=== PATIENT | female | born 1970 | race Caucasian/White ===

== ENCOUNTER 2020-10-27 17:29 | Emergency (ER) | payer SELFPAY ==
[2020-10-27] MEDS: Albuterol/Ipratropium 3.0-0.5 MG/3 ML Neb Soln NEB ONE (21:25)
[2020-10-27] MEDS: LORazepam 2 MG/ML SDV IM ONE (21:26)
--- NOTE | 2020-10-27 21:38 | EDM.PDOCBH ---
ED HPI GENERAL MEDICAL PROBLEM - General Chief Complaint: Drug or Alcohol Abuse Stated Complaint: WITHDRAWLS Time Seen by Provider: 10/27/20 20:46 Source of Information: Reports: Patient History Limitations: Reports: No Limitations - History of Present Illness INITIAL COMMENTS - FREE TEXT/NARRATIVE: HISTORY AND PHYSICAL: History of present illness: Patient is a 50-year-old female who presents to the emergency room with complaints of generally feeling unwell. Patient states she has been a methamphetamine user over the past 10 years. Smokes meth daily or every other day. She states she has been attempting to stop smoking methamphetamine, last use was yesterday afternoon. She is seeking "detox treatment to help me come off of meth". Patient denies any fever, chills, headache, change in vision, syncope or near syncope. Denies any chest pain, back pain, shortness of breath or cough. Denies any abdominal pain, nausea, vomiting, diarrhea, constipation or dysuria. Has not noted any blood in urine or stool. Patient has been eating and drinking appropriately. Denies any other drug abuse or any intravenous drug use. Denies any alcohol abuse. Review of systems: As per history of present illness and below otherwise all systems reviewed and negative. Past medical history: As per history of present illness and as reviewed below otherwise noncontributory. Surgical history: As per history of present illness and as reviewed below otherwise noncontributory. Social history: See social history for further information Family history: As per history of present illness and as reviewed below otherwise noncontributory. Physical exam: General: Well developed and well nourished. Alert and orientated x 3. Nontoxic in appearance and in no acute distress. Vital signs are stable and have been reviewed by me. Nursing notes were reviewed. HEENT: Atraumatic, normocephalic, pupils equal and reactive bilaterally, negative for conjunctival pallor or scleral icterus, mucous membranes moist, TMs normal bilaterally, throat clear, neck supple, nontender, trachea midline. No drooling or trismus noted. No meningeal signs. No hot potato voice noted. Lungs: Clear to auscultation bilaterally. No wheezes, rales, or rhonchi. Chest nontender. Normal work of breathing, no accessory muscles used. Heart: S1S2, regular rate and rhythm without overt murmur, gallops, or rubs. No JVD. No peripheral edema Abdomen: Soft, nondistended, nontender. Normoactive bowel sounds. Negative for masses or costovertebral tenderness. Skin: Intact, warm, dry. No lesions or rashes noted. Hematologic: No petechiae or purpra. Mucosa appropriate color and normal nail bed color and refill. Extremities: Atraumatic, moves all extremities per self without difficulty or deficits, negative for cords or calf pain. Neurovascular unremarkable. Neuro: Awake, alert, oriented. Cranial nerves II through XII unremarkable. Cerebellum unremarkable. Motor and sensory unremarkable throughout. Exam non focal. Psychiatric: Mood and affect are appropriate. Normal thought process. Answering questions appropriately. Please note that the patient was seen and evaluated during the 2019 SARS-CoV-2 novel coronavirus pandemic period. Community viral transmission is ongoing at time of this encounter and the emergency department is operating under pandemic response procedures. Medical Decision Making: Patient is a 50-year-old female who presents to the emergency room requesting "detox" for methamphetamine use. States she has smoked methamphetamine routinely over the past 10 years and would like to come "off of it". Patient does appear anxious and tearful. We discussed possible treatment options including calling for outpatient/inpatient programs in the community versus close follow-up with [facility]. Patient states she does not want to be transferred anywhere. We will do some basic lab work and help with her anxiety. Lab work is unremarkable. Chest x-ray shows no acute findings. I have talked with the patient about today's findings, in addition to providing specific details for plan of care. Reassessment at the time of disposition demonstrates that the patient is in no acute distress. The patient is stable for discharge, counseling was provided and we discussed in great detail signs and symptoms that would prompt them to return to the Emergency Department. Medication, follow up and supportive care measures were reviewed and discussed. Voices understanding and is agreeable to plan of care. Denies any further questions or concerns at this time. Diagnostics: CBC, CMP, chest x-ray Therapeutics: Ativan IM Prescription: None Impression: Methamphetamine Abuse Plan: 1. You were evaluated today on an emergent basis. Your vital signs, lab work and evaluation are within normal limits. We do not have any inpatient drug treatment programs at our facility. I have given you a list of resources to follow up with. [facility] takes walk-ins Sunday-Sunday 8am - 5pm. They have CRU unit that does help patients with addiction. 2. You can alternate Tylenol and ibuprofen as needed for pain and fever management. 3. We encourage you to follow up with your primary care provider in the next few days for re-evaluation and further care/management. 4. If your symptoms should worsen, new symptoms develop or any of the signs and symptoms we discussed should arise please return to the emergency room or call 911 (if needed). Definitive disposition and diagnosis as appropriate pending reevaluation and review of above. - Related Data Allergies Allergy/AdvReac Type Severity Reaction Status Date / Time codeine Allergy Vomiting Verified 10/27/20 20:59 Home Meds: Home Meds Albuterol Sulfate [Albuterol Sulfate HFA] 8.5 gm INH ASDIRECTED 10/27/20 [History] ED ROS GENERAL - Review of Systems Review Of Systems: Comprehensive ROS is negative, except as noted in HPI. ED EXAM, BEHAVIORAL HEALTH - Physical Exam Exam: See Below (See dictation) COURSE, BEHAVIORAL HEALTH COMP - Course Vital Signs: Last Vital Signs Temp 97.0 F 10/27/20 21:30 Pulse 108 H 10/27/20 22:10 Resp 18 10/27/20 22:10 BP 132/82 10/27/20 22:10 Pulse Ox 99 10/27/20 22:10 Orders, Labs, Meds: Laboratory Tests 10/27/20 10/27/20 Range/Units 21:00 21:00 WBC 7.72 (4.0-11.0) K/uL RBC 4.33 (4.30-5.90) M/uL Hgb 13.1 (12.0-16.0) g/dL Hct 38.8 (36.0-46.0) % MCV 89.6 (80.0-98.0) fL MCH 30.3 (27.0-32.0) pg MCHC 33.8 (31.0-37.0) g/dL RDW Std Deviation 42.7 (28.0-62.0) fl RDW Coeff of Que 13 (11.0-15.0) % Plt Count 313 (150-400) K/uL MPV 10.10 (7.40-12.00) fL Neut % (Auto) 62.5 (48.0-80.0) % Lymph % (Auto) 27.2 (16.0-40.0) % [place] % (Auto) 7.9 (0.0-15.0) % Eos % (Auto) 1.8 (0.0-7.0) % Baso % (Auto) 0.6 (0.0-1.5) % Neut # (Auto) 4.8 (1.4-5.7) K/uL Lymph # (Auto) 2.1 (0.6-2.4) K/uL [place] # (Auto) 0.6 (0.0-0.8) K/uL Eos # (Auto) 0.1 (0.0-0.7) K/uL Baso # (Auto) 0.1 (0.0-0.1) K/uL Nucleated RBC % 0.0 /100WBC Nucleated RBCs # 0 K/uL Sodium 137 (136-145) mmol/L Potassium 4.2 (3.5-5.1) mmol/L Chloride 104 (98-107) mmol/L Carbon Dioxide 25.7 (21.0-32.0) mmol/L BUN 18 (7.0-18.0) mg/dL Creatinine 0.9 (0.6-1.0) mg/dL Est Cr Clr Drug Dosing TNP Estimated GFR (MDRD) > 60.0 ml/min Glucose 108 H (74-106) mg/dL Calcium 8.3 L (8.5-10.1) mg/dL Total Bilirubin 0.1 L (0.2-1.0) mg/dL AST 18 (15-37) IU/L ALT 48 (14-63) IU/L Alkaline Phosphatase 87 (46-116) U/L Total Protein 7.2 (6.4-8.2) g/dL Albumin 3.1 L (3.4-5.0) g/dL Globulin 4.1 H (2.6-4.0) g/dL Albumin/Globulin Ratio 0.8 L (0.9-1.6) Medications Discontinued Medications Generic Name Dose Route Start Last Admin Trade Name Freq PRN Reason Stop Dose Admin Albuterol/Ipratropium 3 ml 10/27/20 21:02 10/27/20 21:25 Albuterol/Ipratropium 3.0-0.5 Mg/3 Ml Neb Soln NEB 10/27/20 21:03 3 ml ONETIME ONE Administration Lorazepam 2 mg 10/27/20 21:02 10/27/20 21:26 Lorazepam 2 Mg/Ml Sdv IM 10/27/20 21:03 2 mg ONETIME ONE Administration Departure - Departure Time of Disposition: 21:57 Disposition: Home, Self-Care 01 Clinical Impression: Methamphetamine abuse - Discharge Information Instructions: Methamphetamines Use Disorder Referrals: PCP,None [Primary Care Provider] - Forms: ED Department Discharge Additional Instructions: The following information is given to patients seen in the emergency department who are being discharged to home. This information is to outline your options for follow-up care. We provide all patients seen in our emergency department with a follow-up referral. The need for follow-up, as well as the timing and circumstances, are variable depending upon the specifics of your emergency department visit. If you don't have a primary care physician on staff, we will provide you with a referral. We always advise you to contact your personal physician following an emergency department visit to inform them of the circumstance of the visit and for follow-up with them and/or the need for any referrals to a consulting specialist. The emergency department will also refer you to a specialist when appropriate. This referral assures that you have the opportunity for follow-up care with a specialist. All of these measure are taken in an effort to provide you with optimal care, which includes your follow-up. Under all circumstances we always encourage you to contact your private physician who remains a resource for coordinating your care. When calling for follow-up care, please make the office aware that this follow-up is from your recent emergency room visit. If for any reason you are refused follow-up, please contact the [facility] Emergency Department at and asked to speak to the emergency department charge nurse. [facility] [address] [place] [id number] [facility] [address] [place] [id number] Thank you for choosing the [facility] emergency department in [place] for your medical needs today. It was a pleasure caring for you. Today you were seen in the emergency department for addiction treatment Plan: 1. You were evaluated today on an emergent basis. Your vital signs, lab work and evaluation are within normal limits. We do not have any inpatient drug treatment programs at our facility. I have given you a list of resources to follow up with. [facility] takes walk-ins Sunday-Sunday 8am - 5pm. They have CRU unit that does help patients with addiction. 2. You can alternate Tylenol and ibuprofen as needed for pain and fever management. 3. We encourage you to follow up with your primary care provider in the next few days for re-evaluation and further care/management. 4. If your symptoms should worsen, new symptoms develop or any of the signs and symptoms we discussed should arise please return to the emergency room or call 911 (if needed).
[2020-10-27 21:55] LABS: BLOOD UREA NITROGEN,BUN 18 mg/dL (7.0-18.0); CARBON DIOXIDE,CO2 25.7 mmol/L (21.0-32.0); CHLORIDE,CL 104 mmol/L (98-107); GLUCOSE RANDOM 108 mg/dL (74-106); POTASSIUM,K 4.2 mmol/L (3.5-5.1); SODIUM,NA 137 mmol/L (136-145)
--- NOTE | 2020-10-27 21:55 | CR ---
INDICATION: Shortness of breath TECHNIQUE: Chest radiograph 1 view COMPARISON: None FINDINGS: The sensitivity and specificity of the exam are moderately limited by the patient`s body habitus. Mediastinum: The mediastinum is normal in appearance. The heart silhouette is normal in size and morphology. Lung: Both lungs are unremarkable in appearance. No sign of pleural effusion seen. No pneumothorax is identified. Bone and Soft tissue: Unremarkable for age. IMPRESSION: 1. No acute cardiopulmonary disease is seen. Dictated by: Isaak Barber MD @ 10/27/2020 21:54:40 (Electronically Signed)
== END 2020-10-27 22:10 | disposition home or self-care (01) ==
LOC: MW.ED 17:29
DX: F15.10 Other stimulant abuse, uncomplicated (principal); Z88.5 Allergy status to narcotic agent
CPT/HCPCS: 36415; 71045; 80053; 85025; 96372; 99284; J2060; J7620-GY

== ENCOUNTER 2020-10-30 00:09 | Emergency (ER) | payer MEDICAID, OTHER ==
[2020-10-30] MEDS ORDERED: Alum Hydrox/Mag Hydrox/Simeth 15 ML, Lidocaine 2% 5 ML PO ONE ×2 (01:54)
[2020-10-30] MEDS ORDERED: Pantoprazole 40 MG Tab.CR PO STA (01:54)
--- NOTE | 2020-10-30 02:21 | EDM.PDOC ---
ED HPI GENERAL MEDICAL PROBLEM - General Chief Complaint: Abdominal Pain Stated Complaint: HEARTBURN, VOMITTING Time Seen by Provider: 10/30/20 01:51 - History of Present Illness INITIAL COMMENTS - FREE TEXT/NARRATIVE: HISTORY AND PHYSICAL: History of present illness: This a 50-year-old female with no history of hypertension, diabetes, liver, lung, kidney problems who presents ER today secondary to GERD symptoms. Patient reports that she feels like she has heartburn. Patient reports that she tasted funny acid taste in her mouth. Patient reports that she is a recovering methamphetamine user and is currently staying at [facility]. Patient denies any recent fevers, shakes, chills, nausea, vomiting, diarrhea, dysuria, frequency or urgency, chest pain, shortness of breath. Patient reports no discomfort in her chest but does feel that burning sensation in her throat. Patient reports no exertional component. Patient denies any pain rating down her neck jaw or back. Patient has any diaphoresis or shortness of breath. Review of systems: As per history of present illness and below otherwise all systems reviewed and negative. Past medical history: As per history of present illness and as reviewed below otherwise noncontributory. Surgical history: As per history of present illness and as reviewed below otherwise noncontributory. Social history: No reported history of drug abuse. Family history: As per history of present illness and as reviewed below otherwise noncontributory. Physical exam: This patient was seen and evaluated during the 2019 SARS-CoV-2 novel coronavirus pandemic period. Community viral transmission is ongoing at time of this encounter and the emergency department is operating under pandemic response procedures. Constitutional: Patient is oriented to person, place, and time. Appears well- developed and well-nourished. No distress. HEENT: Moist mucous membranes Head: Normocephalic and atraumatic Eyes: Right eye exhibits no discharge. Left eye exhibits no discharge. No scleral icterus Neck: Normal range of motion. No tracheal deviation present. Cardiovascular: Normal rate and regular rhythm. Pulmonary: Effort normal, no respiratory distress. Abdominal: No distention Musculoskeletal: Normal range of motion Neurologic: Alert and oriented to person, place and time. Skin: [place], warm and dry. Psychiatric: Normal mood and affect. Behavior is normal. Judgment and thought content normal. Nursing note and vital signs have been reviewed Diagnostics: EKG: October 30, 2020, 1:58 AM As interpreted by ER physician: Kathya: Nonspecific ST-T wave abnormalities Normal axis No evidence of ST elevation [place] Normal sinus rhythm heart rate of 92 Therapeutics: GI cocktail, Protonix 40 mg p.o. Assessment and plan: 50-year-old female who presents ER today secondary to signs and symptoms consistent with heartburn. Patient's EKG was unremarkable. Patient reports complete resolution of her symptoms approximate 2 to 3 minutes after taking the GI cocktail. Patient be given a prescription for Prilosec to assist with her symptoms as well. Patient symptoms do not appear to be consistent with cardiac etiology of her pain given the resolution with GI cocktail and no other cardiac symptomatology. Reassessment at the time of disposition demonstrates that the patient is in no acute distress. The patient has remained stable throughout the entire ED visit and is without objective evidence for acute process requiring urgent intervention or hospitalization. The patient is stable for discharge, counseling is provided as documented above, discussed symptomatic treatment and specific conditions for return. I have spoken with the patient/caregiver and discussed todays findings, in addition to providing specific details for the plan of care. Questions are answered and there is agreement with the plan. Definitive disposition and diagnosis as appropriate pending reevaluation and review of above. Abdomen Pain Score (Numeric/FACES): 10 - Related Data Allergies Allergy/AdvReac Type Severity Reaction Status Date / Time codeine Allergy Vomiting Verified 10/30/20 01:53 Home Meds: Home Meds Albuterol Sulfate [Albuterol Sulfate HFA] 8.5 gm INH ASDIRECTED 10/27/20 [History] Omeprazole Magnesium [Prilosec Otc] 20 mg PO DAILY #20 tablet. 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 Musculoskeletal History: Reports: None Neurological History: Reports: None Psychiatric History: Reports: Addiction, Anxiety, Depression Endocrine/Metabolic History: Reports: None Insulin Pump Model and Vp Data: None Hematologic History: Reports: None Immunologic History: Reports: None Oncologic (Cancer) History: Reports: None Dermatologic History: Reports: None - Infectious Disease History Infectious Disease History: Reports: None - Past Surgical History Head Surgeries/Procedures: Reports: None Social & Family History - Caffeine Use Caffeine Use: Reports: Soda ED ROS GENERAL - Review of Systems Review Of Systems: See Below ED EXAM, GENERAL - Physical Exam Exam: See Below Course - Vital Signs Last Recorded V/S: Last Vital Signs Temp 97.2 F 10/30/20 01:45 Pulse 92 10/30/20 01:45 Resp 18 10/30/20 01:45 BP 132/88 10/30/20 01:45 Pulse Ox 97 10/30/20 01:45 - Orders/Labs/Meds Meds: Medications Discontinued Medications Generic Name Dose Route Start Last Admin Trade Name Leonarda PRN Reason Stop Dose Admin Al Hydroxide/Mg Hydroxide 15 0 ml 10/30/20 01:54 10/30/20 02:15 ml/ Lidocaine HCl 5 ml PO 10/30/20 01:55 20 each ONETIME ONE Administration Pantoprazole Sodium 40 mg 10/30/20 01:54 10/30/20 02:14 Pantoprazole 40 Mg Tab.Cr PO 10/30/20 01:55 40 mg DAILY STA Administration Departure - Departure Time of Disposition: 02:20 Disposition: Home, Self-Care 01 Condition: Good Clinical Impression: GERD (gastroesophageal reflux disease) - Discharge Information Instructions: Food Choices for Gastroesophageal Reflux Disease, Adult Referrals: PCP,None [Primary Care Provider] - Additional Instructions: Your seen and evaluated in ER today secondary to sinus symptoms consistent with GERD. You were given a prescription for Prilosec that would help his symptoms long-term. He can also get [id number] Maalox to take as needed if your symptoms should return. The following information is given to patients seen in the emergency department who are being discharged to home. This information is to outline your options for follow-up care. We provide all patients seen in our emergency department with a follow-up referral. The need for follow-up, as well as the timing and circumstances, are variable depending upon the specifics of your emergency department visit. If you don't have a primary care physician on staff, we will provide you with a referral. We always advise you to contact your personal physician following an emergency department visit to inform them of the circumstance of the visit and for follow-up with them and/or the need for any referrals to a consulting specialist. The emergency department will also refer you to a specialist when appropriate. This referral assures that you have the opportunity for follow-up care with a specialist. All of these measure are taken in an effort to provide you with optimal care, which includes your follow-up. Under all circumstances we always encourage you to contact your private physician who remains a resource for coordinating your care. When calling for follow-up care, please make the office aware that this follow-up is from your recent emergency room visit. If for any reason you are refused follow-up, please contact the [facility] Emergency Department at and asked to speak to the emergency department charge nurse. [facility] - [facility] [address] [place] [id number] [facility] [address] [place] [id number] Sepsis Event Note (ED) - Focused Exam Vital Signs: Vital Signs Temp Pulse Resp BP Pulse Ox 10/30/20 01:45 97.2 F 92 18 132/88 97
== END 2020-10-30 02:40 | disposition home or self-care (01) ==
LOC: MW.ED 00:09
DX: K21.9 Gastro-esophageal reflux disease without esophagitis (principal); J45.909 Unspecified asthma, uncomplicated; Z88.5 Allergy status to narcotic agent; Z79.899 Other long term (current) drug therapy
CPT/HCPCS: 93005; 99283; A9270

== ENCOUNTER 2020-10-31 09:05 | Emergency (ER) | payer OTHER, MEDICAID ==
--- NOTE | 2020-10-31 09:41 | EDM.PDOC ---
ED HPI GENERAL MEDICAL PROBLEM - General Chief Complaint: Back Pain or Injury Stated Complaint: LOWER BACK PAIN Time Seen by Provider: 10/31/20 09:37 Source of Information: Reports: Patient History Limitations: Reports: No Limitations - History of Present Illness INITIAL COMMENTS - FREE TEXT/NARRATIVE: 50-year-old female past medical history methamphetamine abuse presents for low back pain. Patient notes that she has been trying to quit methamphetamine use and has not used in about 1 week. She notes that she has chronic low back pain and that she would self medicate as the methamphetamine would help with her back pain. She notes that she never injected and would only smoke the meth. She notes that the pain started to come on last night. She does not recall any rece nt heavy lifting or trauma or falls. She is taken tramadol in the past which helps. She has had MRI imaging of the back in the past that showed a slipped disc at the L4-L5 level. She denies any urinary retention or incontinence. She denies saddle anesthesia symptoms. She denies any lower extremity muscle weakness. She does note that the pain radiates down her right buttocks and posterior leg. She is ambulatory without difficulty. bilateral lower back Pain Score (Numeric/FACES): 8 - Related Data Allergies Allergy/AdvReac Type Severity Reaction Status Date / Time codeine Allergy Vomiting Verified 10/31/20 09:36 Home Meds: Home Meds Albuterol Sulfate [Albuterol Sulfate HFA] 8.5 gm INH ASDIRECTED 10/27/20 [History] Omeprazole Magnesium [Prilosec Otc] 20 mg PO DAILY #20 tablet. 10/30/20 [Rx] traMADol [Ultram] 50 mg PO Q6H PRN #20 tab 10/31/20 [Rx] Past Medical History HEENT History: Reports: None Cardiovascular History: Reports: None Respiratory History: Reports: Asthma Gastrointestinal History: Reports: None Genitourinary History: Reports: None VIDEO OPERATOR History: Reports: None Musculoskeletal History: Reports: None Neurological History: Reports: None Psychiatric History: Reports: Addiction, Anxiety, Depression Endocrine/Metabolic History: Reports: None Insulin Pump Model and Shoe Laster: None Hematologic History: Reports: None Immunologic History: Reports: None Oncologic (Cancer) History: Reports: None Dermatologic History: Reports: None - Infectious Disease History Infectious Disease History: Reports: None - Past Surgical History Head Surgeries/Procedures: Reports: None Social & Family History - Family History Family Medical History: No Pertinent Family History - Tobacco Use Tobacco Use Status *Q: Current Every Day Tobacco User Years of Tobacco use: 30 Packs/Tins Daily: 0.5 - Caffeine Use Caffeine Use: Reports: None - Recreational Drug Use Recreational Drug Use: Yes Drug Use in Last 12 Months: Yes Recreational Drug Type: Reports: Methamphetamine ED ROS GENERAL - Review of Systems Review Of Systems: Comprehensive ROS is negative, except as noted in HPI. ED EXAM, GENERAL - Physical Exam Exam: See Below Exam Limited By: No Limitations General Appearance: Alert, WD/WN, No Apparent Distress Ears: Hearing Grossly Normal Throat/Mouth: Normal Voice, No Airway Compromise Head: Atraumatic, Normocephalic Neck: Normal Inspection Respiratory/Chest: No Respiratory Distress, Lungs Clear, Normal Breath Sounds, No Accessory Muscle Use Cardiovascular: Normal Peripheral Pulses, Regular Rate, Rhythm GI/Abdominal: Soft, Non-Tender Back Exam: Other (no midline TTP; no skin changes noted; +TTP of R lumbar paraspinal musculature) Extremities: Normal Inspection, Other (normal muscle strength b/l LE) Neurological: Alert, Oriented, Normal Cognition, Normal Gait, No Motor/Sensory Deficits Psychiatric: Normal Affect, Normal Mood Skin Exam: Warm, Dry, Intact, Normal Color Course - Vital Signs Last Recorded V/S: Last Vital Signs Temp 98.2 F 10/31/20 10:54 Pulse 88 10/31/20 10:54 Resp 18 10/31/20 10:54 BP 118/84 10/31/20 10:54 Pulse Ox 97 10/31/20 10:54 - Orders/Labs/Meds Labs: Laboratory Tests 10/31/20 10/31/20 Range/Units 10:30 10:30 Urine Color YELLOW Urine Appearance CLEAR Urine pH 7.0 (5.0-8.0) Ur Specific [place] 1.010 (1.001-1.035) Urine Protein NEGATIVE (NEGATIVE) mg/dL Urine Glucose (UA) NEGATIVE (NEGATIVE) mg/dL Urine Ketones NEGATIVE (NEGATIVE) mg/dL Urine Occult Blood NEGATIVE (NEGATIVE) Urine Nitrite NEGATIVE (NEGATIVE) Urine Bilirubin NEGATIVE (NEGATIVE) Urine Urobilinogen 0.2 (<2.0) EU/dL Ur Leukocyte Esterase NEGATIVE (NEGATIVE) Urine HCG, Qual NEGATIVE (NEGATIVE) Meds: Medications Discontinued Medications Generic Name Dose Route Start Last Admin Trade Name Freq PRN Reason Stop Dose Admin Cyclobenzaprine HCl 10 mg 10/31/20 09:49 10/31/20 10:29 Cyclobenzaprine 10 Mg Tab PO 10/31/20 09:50 10 mg ONETIME ONE Administration Dexamethasone 6 mg 10/31/20 09:49 10/31/20 10:29 Dexamethasone 10 Mg/Ml Sdv IM 10/31/20 09:50 6 mg STAT STA Administration Ketorolac Tromethamine 30 mg 10/31/20 09:49 10/31/20 10:28 Ketorolac 30 Mg/Ml Sdv IM 10/31/20 09:50 30 mg ONETIME ONE Administration - Re-Assessments/Exams Free Text/Narrative Re-Assessment/Exam: 10/31/20 09:58 My suspicion for epidural abscess or cauda equina is low considering the reassur ing history and benign physical exam. Will get CT imaging of the lumbar spine to ensure no gross abnormalities. Will give Toradol, Decadron, Flexeril and reassess. 10/31/20 11:37 CT imaging reveals multiple stable transverse process fractures of the lumbar spine. Will discharge patient with analgesia patient notes that she did fall and winter of last year and these fractures are known to her. Departure - Departure Time of Disposition: 11:47 Disposition: Home, Self-Care 01 Condition: Good Clinical Impression: Lumbar transverse process fracture Qualifiers: Encounter type: initial encounter Fracture type: closed Qualified Code(s): S32.009A - Unspecified fracture of unspecified lumbar vertebra, initial encounter for closed fracture - Discharge Information Prescriptions: traMADol [Ultram] 50 mg PO Q6H PRN #20 tab PRN Reason: Pain Instructions: Lumbar Spine Fracture Referrals: PCP,None [Primary Care Provider] - Forms: ED Department Discharge Additional Instructions: The following information is given to patients seen in the emergency department who are being discharged to home. This information is to outline your options for follow-up care. We provide all patients seen in our emergency department with a follow-up referral. The need for follow-up, as well as the timing and circumstances, are variable depending upon the specifics of your emergency department visit. If you don't have a primary care physician on staff, we will provide you with a referral. We always advise you to contact your personal physician following an emergency department visit to inform them of the circumstance of the visit and for follow-up with them and/or the need for any referrals to a consulting specialist. The emergency department will also refer you to a specialist when appropriate. This referral assures that you have the opportunity for follow-up care with a specialist. All of these measure are taken in an effort to provide you with optimal care, which includes your follow-up. Under all circumstances we always encourage you to contact your private physician who remains a resource for coordinating your care. When calling for follow-up care, please make the office aware that this follow-up is from your recent emergency room visit. If for any reason you are refused follow-up, please contact the [facility] Emergency Department at and asked to speak to the emergency department charge nurse. Please follow up with your primary care physician. If you do not have a primary care physician, see below: [facility] [address] [place] [id number] [facility] [address] [place] [id number] [facility] [address] [place] [id number] Sepsis Event Note (ED) - Evaluation Sepsis Screening Result: No Definite Risk - Focused Exam Vital Signs: Vital Signs Temp Pulse Resp BP Pulse Ox 10/31/20 10:54 98.2 F 88 18 118/84 97 10/31/20 09:31 97.4 F 96 18 128/39 L 98
[2020-10-31] MEDS ORDERED: Ketorolac 30 MG/ML SDV IM ONE (09:49)
[2020-10-31] MEDS ORDERED: Cyclobenzaprine 10 MG Tab PO ONE (09:49)
[2020-10-31] MEDS ORDERED: Dexamethasone 10 MG/ML SDV IM STA (09:49)
--- NOTE | 2020-10-31 11:19 | CT ---
INDICATION: Acute on chronic low back pain. TECHNIQUE: CT of the lumbar spine without contrast. Coronal and sagittal reformats are included. COMPARISON: None. FINDINGS: Five lumbar type vertebral bodies, with the last fully formed disc space referred to as L5-S1. They are mildly displaced acute fractures involving the left L1 through L4 transverse processes. No unstable fractures. At L5-S1, advanced disc degeneration with disc vacuum phenomenon and endplate remodeling. There is a moderate disc bulge with overlying osteophytic ridging. When combined with facet arthrosis there is [id number] right and moderate left neural foraminal stenosis with potential impingement of the exiting left L5 nerve root. Bilateral SI joint arthrosis no significant soft tissue abnormalities. IMPRESSION: 1. Mildly displaced acute L1 through L4 transverse process fractures. No unstable fractures. 2. Spondylosis at L5-S1 as detailed above. Please note that all CT scans at this facility use dose modulation, iterative reconstruction, and/or weight-based dosing when appropriate to reduce radiation dose to as low as reasonably achievable. Dictated by Buck Comer MD @ 10/31/2020 11:17:25 AM (Electronically Signed)
== END 2020-10-31 11:56 | disposition home or self-care (01) ==
LOC: MW.ED 09:05
DX: S32.018A Other fracture of first lumbar vertebra, initial encounter for closed fracture (principal); S32.048A Other fracture of fourth lumbar vertebra, initial encounter for closed fracture; Z88.5 Allergy status to narcotic agent; Z72.0 Tobacco use; Z79.899 Other long term (current) drug therapy; X50.0XXA Overexertion from strenuous movement or load, initial encounter
CPT/HCPCS: 72131; 81003; 81025; 96372; 99284; A9270; J1100; J1885

== ENCOUNTER 2021-03-04 19:28 | Emergency (ER) | payer OTHER ==
[2021-03-04] MEDS ORDERED: methylPREDNISolone Sodium Succinate 125 MG/2 ML SDV IM ONE (21:39)
[2021-03-04] MEDS ORDERED: Ondansetron 4 MG Tab.DIS PO ONE (21:40)
[2021-03-04] MEDS ORDERED: Acetaminophen/oxyCODONE 325-5 MG Tab PO ONE (21:40)
--- NOTE | 2021-03-04 21:48 | EDM.PDOC ---
<aDnn Johnson - Last Filed: 03/04/21 22:53> ED HPI GENERAL MEDICAL PROBLEM - General Chief Complaint: Back Pain or Injury Stated Complaint: BACK PAIN Time Seen by Provider: 03/04/21 19:51 - Related Data Allergies Allergy/AdvReac Type Severity Reaction Status Date / Time codeine Allergy Vomiting Verified 03/04/21 20:24 Home Meds: Home Meds Bumetanide 2 mg PO DAILY 03/04/21 [History] Pantoprazole [ProTONIX] 40 mg PO DAILY 03/04/21 [History] Venlafaxine [Effexor] 75 mg PO DAILY 03/04/21 [History] allopurinoL [Zyloprim] 100 mg PO DAILY 03/04/21 [History] busPIRone [Buspar] 10 mg PO DAILY 03/04/21 [History] predniSONE [Prednisone] 40 mg PO DAILY 4 Days #8 tablet 03/04/21 [Rx] traMADol [Ultram] 50 mg PO Q4H PRN #20 tab 03/04/21 [Rx] Departure - Departure Time of Disposition: 22:53 Disposition: Home, Self-Care 01 Clinical Impression: Multiple transverse process fractures Lumbago with sciatica, right side Qualifiers: Chronicity: acute Back pain laterality: right Qualified Code(s): M54.41 - Lumbago with sciatica, right side - Discharge Information *PRESCRIPTION DRUG MONITORING PROGRAM REVIEWED*: No *COPY OF PRESCRIPTION DRUG MONITORING REPORT IN PATIENT JANIS: No Prescriptions: predniSONE [Prednisone] 40 mg PO DAILY 4 Days #8 tablet traMADol [Ultram] 50 mg PO Q4H PRN #20 tab PRN Reason: Pain Instructions: Transverse Process Fracture, Sciatica, [id number], Chronic Back Pain, [id number] Referrals: Garo Muniz MD [Primary Care Provider] - Forms: ED Department Discharge Additional Instructions: You were evaluated today on an emergent basis. At this time your CT did show old fractures of your transverse process of your spine. Typically these do not require any surgical intervention. We recommend that you use pain medication as prescribed and follow-up with your primary care physician. Please return if you have any new or worsening symptoms such as urinating on yourself, defecating on yourself, fever. The following information is given to patients seen in the emergency department who are being discharged to home. This information is to outline your options for follow-up care. We provide all patients seen in our emergency department with a follow-up referral. The need for follow-up, as well as the timing and circumstances, are variable depending upon the specifics of your emergency department visit. If you don't have a primary care physician on staff, we will provide you with a referral. We always advise you to contact your personal physician following an emergency department visit to inform them of the circumstance of the visit and for follow-up with them and/or the need for any referrals to a consulting specialist. The emergency department will also refer you to a specialist when appropriate. This referral assures that you have the opportunity for follow-up care with a specialist. All of these measure are taken in an effort to provide you with optimal care, which includes your follow-up. Under all circumstances we always encourage you to contact your private physician who remains a resource for coordinating your care. When calling for follow-up care, please make the office aware that this follow-up is from your recent emergency room visit. If for any reason you are refused follow-up, please contact the [facility] Emergency Department at and asked to speak to the emergency department charge nurse. [facility] [address] [place] [id number] [id number] Thank you for choosing the [facility] emergency department in [place] for your medical needs today. It was a pleasure caring for you. Today you were seen in the emergency department for acute on chronic back pain Your prescription was electronically sent to: [facility] Medication/Directions: Tramadol, 1 tab every 4 hours as needed for pain. Prednisone is a steroid to help with the sciatic pain. 1. The medication you received today does cause drowsiness, so do not drive for the remaining day 2. When resting please lay on a flat firm surface. Limit your immobility to prevent muscle stiffness. Get up to ambulate/move around/gentle stretching multiple times throughout the day. May alternate heat and ice to the painful areas 3. Tylenol and Ibuprofen as needed for back pain. Tramadol may cause drowsiness a do not take it will driving her needing to be functioning outside of the house. 4. Please follow-up with your primary care provider as we discussed. Return to the ED as needed and as discussed. <Pati Villegas E - Last Filed: 03/05/21 10:10> ED HPI GENERAL MEDICAL PROBLEM - General Source of Information: Reports: Patient History Limitations: Reports: No Limitations - History of Present Illness INITIAL COMMENTS - FREE TEXT/NARRATIVE: HISTORY AND PHYSICAL: History of present illness: Patient is a 50-year-old female who presents to the emergency room with complaints of lumbar back pain. Patient had a standing height fall onto the ice on 10/31/20 in which she did have lumbar fracture. She states shortly after that she did go to [place] and followed up with a primary care provider and had an outpatient MRI. She was told she had bulging disks. She has since moved back to [place] and has fallen several times on the ice, last fall was over a week ago. She has been trying Tylenol and ibuprofen without much relief. States the lumbar back pain is radiating down to bilateral glutes and right lateral hip. She denies any numbness, tingling, saddle paresthesia or weakness. She has not had any urinary or fecal incontinence. Patient denies any fever, chills, headache, change in vision, syncope or near syncope. Denies any chest pain, shortness of breath or cough. Denies any abdominal pain, nausea, vomiting, diarrhea, constipation or dysuria. Has not noted any blood in urine or stool. Patient has been eating and drinking appropriately. No recent travel or sick contacts. Review of systems: As per history of present illness and below otherwise all systems reviewed and negative. Past medical history: As per history of present illness and as reviewed below otherwise noncontributory. Surgical history: As per history of present illness and as reviewed below otherwise noncontributory. Social history: See social history for further information Family history: As per history of present illness and as reviewed below otherwise noncontribu tory. Physical exam: General: Well developed and well nourished. Alert and orientated x 3. Nontoxic in appearance and in no acute distress. Vital signs are stable and have been reviewed by me. Nursing notes were reviewed. HEENT: Atraumatic, normocephalic, pupils equal and reactive bilaterally, negative for conjunctival pallor or scleral icterus, mucous membranes moist, TMs normal bilaterally, throat clear, neck supple, nontender, trachea midline. No drooling or trismus noted. No meningeal signs. No hot potato voice noted. Lungs: Clear to auscultation bilaterally. No wheezes, rales, or rhonchi. Chest nontender. Normal work of breathing, no accessory muscles used. Heart: S1S2, regular rate and rhythm without overt murmur, gallops, or rubs. No JVD. No peripheral edema Abdomen: Soft, nondistended, nontender. Normoactive bowel sounds. Negative for masses or costovertebral tenderness. C-spine/Back: No pinpoint vertebral tenderness upon palpation. No crepitus, step-offs or obvious deformities. Paraspinous muscular tenderness to the lumbar region. Patient is ambulatory into the emergency room without difficulty or deficit. Able to rock back on heels and walk on toes. Denies any urinary or fecal incontinence. Denies any numbness, tingling or saddle paresthesia. No concerns of serious infection, fracture or cord compression, or cauda equina syndrome. Deep tendon reflexes brisk bilaterally. Skin: Intact, warm, dry. No lesions or rashes noted. Hematologic: No petechiae or purpra. Mucosa appropriate color and normal nail bed color and refill. Extremities: Atraumatic, moves all extremities per self without difficulty or deficits, negative for cords or calf pain. Neurovascular unremarkable. Neuro: Awake, alert, oriented. Cranial nerves II through XII unremarkable. Cerebellum unremarkable. Motor and sensory unremarkable throughout. Exam nonfocal. Psychiatric: Mood and affect are appropriate. Normal thought process. Answering questions appropriately. Please note that the patient was seen and evaluated during the 2019 SARS-CoV-2 novel coronavirus pandemic period. Community viral transmission is ongoing at time of this encounter and the emergency department is operating under pandemic response procedures. Medical Decision Making: Patient is a 42 atrial female who presents to the emergency room with complaints of acute on chronic back pain. She did have a lumbar fracture on 10/31/2020. She states while in [place] she did have an MRI which showed bulging disks. She states since returning to [place] she has slipped and fallen on the ice a few times, last fall was approximately 1 week ago. She has been using Tylenol and ibuprofen without much relief. We did discuss doing imaging, due to fractures and bulging disks I will get a CT. 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 No evidence of acute lumbar vertebral fracture. Stable degenerative changes at L4-5 and L5-S1. Results were discussed with patient. We reviewed and discussed plan of care after discharge. She does need to find a primary care provider to manage her chronic pain. We did discuss in great length signs and symptoms that would prompt her to return to the emergency room. Patient voices understanding and is agreeable. She denies any further questions or concerns at this time. Diagnostics: Lumbar CT Therapeutics: Solu-Medrol, Percocet, Zofran Impression: Acute on chronic back pain Plan: 1. The medication you received today does cause drowsiness, so do not drive for the remaining day 2. When resting please lay on a flat firm surface. Limit your immobility to prevent muscle stiffness. Get up to ambulate/move around/gentle stretching multiple times throughout the day. May alternate heat and ice to the painful areas 3. Tylenol and Ibuprofen as needed for back pain. Tramadol may cause drowsiness a do not take it will driving her needing to be functioning outside of the house. 4. Please follow-up with your primary care provider as we discussed. Return to the ED as needed and as discussed. Definitive disposition and diagnosis as appropriate pending reevaluation and review of above. Back Pain Score (Numeric/FACES): 10 Past Medical History HEENT History: Reports: None Cardiovascular History: Reports: None Respiratory History: Reports: Asthma Gastrointestinal History: Reports: None Genitourinary History: Reports: None ASSISTANT FACILITY MANAGER History: Reports: None Musculoskeletal History: Reports: None Neurological History: Reports: None Psychiatric History: Reports: Addiction, Anxiety, Depression Endocrine/Metabolic History: Reports: None Insulin Pump Model and Melter Supervisor: None Hematologic History: Reports: None Immunologic History: Reports: None Oncologic (Cancer) History: Reports: None Dermatologic History: Reports: None - Infectious Disease History Infectious Disease History: Reports: None - Past Surgical History Head Surgeries/Procedures: Reports: None Social & Family History - Family History Family Medical History: No Pertinent Family History - Tobacco Use Second Hand Smoke Exposure: No - Caffeine Use Caffeine Use: Reports: None - Recreational Drug Use Recreational Drug Use: No ED ROS GENERAL - Review of Systems Review Of Systems: Comprehensive ROS is negative, except as noted in HPI. ED EXAM,LOWER BACK PAIN/INJURY - Physical Exam Exam: See Below (See dictation) Course - Vital Signs Last Recorded V/S: Last Vital Signs Temp 97.2 F 03/04/21 20:22 Pulse 79 03/04/21 20:22 Resp 20 03/04/21 20:22 BP 113/78 03/04/21 20:22 Pulse Ox 99 03/04/21 20:22 - Orders/Labs/Meds Meds: Medications Discontinued Medications Generic Name Dose Route Start Last Admin Trade Name Leonarda PRN Reason Stop Dose Admin Methylprednisolone Sodium Succinate 125 mg 03/04/21 21:39 03/04/21 22:18 Methylprednisolone Sodium Succinate 125 Mg/2 Ml Sdv IM 03/04/21 21:40 125 mg ONETIME ONE Administration Ondansetron HCl 4 mg 03/04/21 21:40 03/04/21 22:18 Ondansetron 4 Mg Tab.Dis PO 03/04/21 21:41 4 mg ONETIME ONE Administration Oxycodone/Acetaminophen 1 tab 03/04/21 21:40 03/04/21 22:17 Acetaminophen/Oxycodone 325-5 Mg Tab PO 03/04/21 21:41 1 tab ONETIME ONE Administration Sepsis Event Note (ED) - Evaluation Sepsis Screening Result: No Definite Risk
--- NOTE | 2021-03-04 22:48 | CT ---
Indication: Fall, pain Technique: Nonenhanced axial CT imaging through the lumbar spine. Sagittal and coronal reconstructions are provided. Comparison: CT lumbar spine without contrast 10/31/2020 Findings: The lumbar vertebral bodies are normal in height. There is no evidence of acute fracture. There is stable appearance of chronic nonunited fractures involving the left L1 through L4 transverse processes. There is no prevertebral edema or paraspinal hematoma. Spinal alignment is normal. Degenerative changes at L5-S1, with bilateral neural foraminal stenosis, are similar to prior. Stable mild disc bulging is also noted at L4-5. Impression: 1. 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 No evidence of acute lumbar vertebral fracture. 2. Stable degenerative changes at L4-5 and L5-S1. Please note that all CT scans at this facility use dose modulation, iterative reconstruction, and/or weight-based dosing when appropriate to reduce radiation dose to as low as reasonably achievable. Dictated by Korey Hutson MD @ 03/04/2021 10:47:04 PM (Electronically Signed)
== END 2021-03-04 23:10 | disposition home or self-care (01) ==
LOC: MW.ED 19:28
DX: S32.018A Other fracture of first lumbar vertebra, initial encounter for closed fracture (principal); S32.048A Other fracture of fourth lumbar vertebra, initial encounter for closed fracture; M54.41 Lumbago with sciatica, right side; Z88.5 Allergy status to narcotic agent; Z79.899 Other long term (current) drug therapy; W00.9XXA Unspecified fall due to ice and snow, initial encounter
CPT/HCPCS: 72131; 96372; 99283; A9270; J2930

== ENCOUNTER 2021-03-25 14:08 | Emergency (ER) | payer OTHER ==
[2021-03-25] MEDS ORDERED: Ketorolac 60 MG/2 ML SDV IM ONE (16:29)
[2021-03-25] MEDS ORDERED: Acetaminophen 500 MG Tab PO ONE (16:30)
== END 2021-03-25 16:46 | disposition home or self-care (01) ==
LOC: MW.ED 14:08
DX: B34.9 Viral infection, unspecified (principal); Z88.5 Allergy status to narcotic agent; Z79.899 Other long term (current) drug therapy
CPT/HCPCS: 96372; 99283; A9270; J1885